=== PATIENT | female | born 1990 | race Two or more races ===

== ENCOUNTER 2018-08-15 09:35 | Emergency (ER) | payer MEDICAID ==
[~2018-08-15] VITALS: Ht 149.9 cm; Wt 59.1 kg
[2018-08-15] MEDS ORDERED: IBUPROFEN 600 MG TABLET PO ONE (10:30)
[2018-08-15 12:45] VITALS: BP 125/71
== END 2018-08-15 12:53 | disposition home or self-care (01) ==
LOC: EMS 09:36
DX: S16.1XXA Strain of muscle, fascia and tendon at neck level, initial encounter (principal); S00.03XA Contusion of scalp, initial encounter; F19.90 Other psychoactive substance use, unspecified, uncomplicated; Z59.0 Homelessness; Y08.89XA Assault by other specified means, initial encounter; Y93.89 Activity, other specified; Y92.89 Other specified places as the place of occurrence of the external cause; Y99.8 Other external cause status